=== PATIENT | male | born 1980 | race Caucasian/White ===

== ENCOUNTER 2020-09-17 18:51 | Emergency (ER) | payer OTHER ==
[~2020-09-17] VITALS: Ht 180.3 cm; Wt 86.3 kg
[2020-09-17 18:54] VITALS: BP 140/70
[2020-09-17] MEDS ORDERED: IV NORMAL SALINE 1,000ML 1,000 ML IV ONE (19:15)
--- NOTE | 2020-09-17 19:29 | PHYS DOC ---
Past History Past Medical History: Anxiety, Asthma, GERD, Migraines, Other Additional Past Medical Histor: PTSD, Hepatitis Additional Past Surgical Histo: chest tube Alcohol Use: Rarely General Adult EDM: Chief Complaint: ALTERED MENTAL STATUS HPI: HPI: 40-year-old male presents from the [facility] with reported altered mental status. The patient denies feeling unusual. He tells me that he does feel a bit anxious today, but he has a history of some baseline anxiety. He denies taking any medications, drugs, or alcohol. He has no specific complaints. He denies fever or chills. Review of Systems: Review of Systems: Constitutional: Denies fever or chills Eyes: Denies change in visual acuity HENT: Denies nasal congestion or sore throat Respiratory: Denies cough or shortness of breath Cardiovascular: Denies chest pain or edema GI: Denies abdominal pain, nausea, vomiting, bloody stools or diarrhea : Denies dysuria Musculoskeletal: Denies back pain or joint pain Integument: Denies rash Neurologic: Denies headache, focal weakness or sensory changes Endocrine: Denies polyuria or polydipsia Lymphatic: Denies swollen glands Psychiatric: Anxiety Current Medications: Current Meds: Current Medications Medications (Trade) Dose Ordered Sig/Regina Start Time Stop Time Status Last Admin Dose Admin Sodium Chloride 1,000 ml @ 1,000 mls/hr 1X ONCE 09/17/20 19:15 09/17/20 20:14 Allergies: Allergies: Allergies Coded Allergies Type Severity Reaction Last Updated Verified Sulfa (Sulfonamide Antibiotics) Allergy Unknown 09/17/20 Yes Physical Exam: PE: Constitutional: Well developed, well nourished, no acute distress, non-toxic appearance. [] HENT: Normocephalic, atraumatic, bilateral external ears normal, oropharynx moist, no oral exudates, nose normal. [] Eyes: PERRLA, EOMI, conjunctiva normal, no discharge. [] Neck: Normal range of motion, no tenderness, supple, no stridor. [] Cardiovascular: Heart rate regular rhythm, no murmur [] Lungs & Thorax: Bilateral breath sounds clear to auscultation [] Abdomen: Bowel sounds normal, soft, no tenderness, no masses, no pulsatile ma sses. [] Skin: Warm, dry, no erythema, no rash. Lots of tattoos. [] Back: No tenderness, no CVA tenderness. [] Extremities: No tenderness, no cyanosis, no clubbing, ROM intact, no edema. [] Neurologic: Alert and oriented X 3, normal motor function, normal sensory function, no focal deficits noted. [] Psychologic: Affect normal, judgement normal, mood normal. [] Current Patient Data: Vital Signs: Vital Signs Date Time Temp Pulse Resp B/P (MAP) Pulse Ox O2 Delivery O2 Flow Rate FiO2 09/17/20 18:54 98.4 93 18 140/70 (93) 95 Room Air EKG: EKG: [] Radiology/Procedures: Radiology/Procedures: [] Heart Score: C/O Chest Pain: N/A Risk Factors: Risk Factors: DM, Current or recent (<one month) smoker, HTN, HLP, family history of CAD, obesity. Risk Scores: Score 0 - 3: 2.5% MACE over next 6 weeks - Discharge Home Score 4 - 6: 20.3% MACE over next 6 weeks - Admit for Clinical Observation Score 7 - 10: 72.7% MACE over next 6 weeks - Early Invasive Strategies Course & Med Decision Making: Course & Med Decision Making Pertinent Labs and Imaging studies reviewed. (See chart for details) The patient's labs are unremarkable. His urinalysis is negative for infection. His urine drug screen is positive for amphetamines and marijuana. He is stable. He is lucid. He fully comprehends his surroundings and is functional within normal limits. I do not see any reason to admit the patient to the hospital. He is stable for discharge back to his facility at this time. [] Candi Disclaimer: Candi Disclaimer: This electronic medical record was generated, in whole or in part, using a voice recognition dictation system. Departure Departure: Impression: Primary Impression: Methamphetamine use Additional Impression: Marijuana use Disposition: HOME / SELF CARE / HOMELESS Condition: STABLE Patient Instructions: Marijuana Abuse-Brief, Methamphetamine Abuse, Complications MARIAH ROWLEY DO Sep 17, 2020 19:29
[2020-09-17 19:37] LABS: BASO # 0.1 x10^3/uL (0.0-0.2); BASO % 1 % (0-3); EOS # 0.6 x10^3/uL (0.0-0.7); EOS % 6 % (0-3); HEMATOCRIT 42.6 % (39.0-53.0); HEMOGLOBIN 14.3 g/dL (13.0-17.5); LYMPH % 32 % (24-48); MEAN CORPUSCULAR HEMOGLOBIN 31 pg (25-35); MEAN CORPUSCULAR HGB CONC 34 g/dL (31-37); MEAN CORPUSCULAR VOLUME 92 fL (79-100); MONO # 1.1 x10^3/uL (0.0-1.1); MONO % 11 % (0-9); NEUT # 4.8 x10^3uL (1.8-7.7); NEUT % 50 % (31-73); PLATELET COUNT 361 x10^3/uL (140-400); RED BLOOD COUNT 4.63 x10^6/uL (4.30-5.70); RED CELL DISTRIBUTION WIDTH 12.9 % (11.5-14.5); WHITE BLOOD COUNT 9.6 x10^3/uL (4.0-11.0)
[2020-09-17 19:39] LABS: CALCIUM 8.9 mg/dL (8.5-10.1); CREATININE 1.1 mg/dL (0.7-1.3); GFR 74.5; POTASSIUM 4.1 mmol/L (3.5-5.1)
[2020-09-17 19:44] LABS: BARBITURATES NEG (NEG); BENZODIAZEPINES NEG (NEG); CANNABINOIDS POS (NEG); COCAINE NEG (NEG); METHADONE NEG (NEG); OPIATES NEG (NEG); PHENCYCLIDINE NEG (NEG)
[2020-09-17 19:45] LABS: ALBUMIN 3.9 g/dL (3.4-5.0); ALBUMIN/GLOBULIN RATIO 1.1 (1.0-1.7); TOTAL BILIRUBIN 0.5 mg/dL (0.2-1.0); TOTAL PROTEIN 7.5 g/dL (6.4-8.2)
[2020-09-17 19:45] LABS: AMPHETAMINE/METHAMPHETAMINE POS (NEG)
[2020-09-17 19:50] LABS: BACTERIA,URINE 0 /HPF (0-FEW); BILIRUBIN,URINE NEG (NEG); CLARITY,URINE CLEAR; COLOR,URINE YELLOW; GLUCOSE,URINE NEG (NEG); NITRITE,URINE NEG (NEG); RBC,URINE 0 /HPF (0-2); UROBILINOGEN,URINE 0.2 mg/dL (0.2 mg/dL); WBC,URINE 0 /HPF (0-4)
== END 2020-09-17 20:32 | disposition home or self-care (01) ==
LOC: ER 18:51
DX: F15.90 Other stimulant use, unspecified, uncomplicated (principal); F12.90 Cannabis use, unspecified, uncomplicated; F41.9 Anxiety disorder, unspecified; J45.909 Unspecified asthma, uncomplicated; K21.9 Gastro-esophageal reflux disease without esophagitis; G43.909 Migraine, unspecified, not intractable, without status migrainosus; F43.10 Post-traumatic stress disorder, unspecified; Z88.2 Allergy status to sulfonamides
CPT/HCPCS: 36415; 80053; 80307; 81001; 85025; 96360; 99283; J7030

== ENCOUNTER 2021-01-26 15:09 | Emergency (ER) | payer OTHER ==
[~2021-01-26] VITALS: Ht 180.3 cm; Wt 86.3 kg
--- NOTE | 2021-01-26 15:31 | PHYS DOC ---
Past History Past Medical History: Anxiety, Asthma, GERD, Migraines, Other Additional Past Medical Histor: PTSD, Hepatitis (TELMA CAMPBELL DO) Past Surgical History: Other Additional Past Surgical Histo: chest tube (TELMA CAMPBELL DO) Alcohol Use: Rarely Drug Use: Other (K2) (TELMA CAMPBELL DO) Adult General Chief Complaint Chief Complaint: ALTERED MENTAL STATUS HPI HPI Patient is a 40-year-old male who currently lives at the [facility] presents via EMS for seizure. Patient reportedly took an unknown amount of K2 and had a witnessed seizure. Bystanders report patient fell and hit head with continued seizure-like activities that was described as generalized tonic- clonic. EMS was called and on arrival approximately 10 minutes later, patient continued to have residual seizure-like activity. After assessment and in route transport to ER, patient seizure-like activity resolved without any intervention. Patient postictal on arrival to ER answering questions by nodding head and with single word answers only. Denies being in any pain (TELMA CAMPBELL DO) Review of Systems Review of Systems Fourteen body systems of review of systems have been reviewed. See HPI for pertinent positives and negative responses, other campuzano all other systems are negative, non-pertinent or non-contributory (TELMA CAMPBELL DO) Allergies Allergies Allergies Coded Allergies Type Severity Reaction Last Updated Verified Sulfa (Sulfonamide Antibiotics) Allergy Unknown 09/17/20 Yes (TELMA CAMPBELL DO) Physical Exam Physical Exam Constitutional: Well developed, well nourished, no acute distress, non-toxic appearance. HENT: Normocephalic, atraumatic, bilateral external ears normal, oropharynx moist, no oral exudates, nose normal. Eyes: PERRLA, EOMI, conjunctiva normal, no discharge. Neck: Normal range of motion, no tenderness, supple, no stridor. Cardiovascular: Heart rate regular, sinus rhythm, no murmurs rubs or gallops Lungs & Thorax: Bilateral breath sounds clear to auscultation Abdomen: Bowel sounds normal, soft, no tenderness, no masses, no pulsatile masses. Nonsurgical abdomen, no peritoneal signs Skin: Warm, dry, no erythema, no rash. Back: No tenderness, no CVA tenderness. Extremities: No tenderness, no cyanosis, no clubbing, ROM intact, no edema. Neurologic: Alert and oriented X 3, grossly normal motor & sensory function, no focal deficits noted. Psychologic: Affect normal, judgement normal, mood normal. (TELMA CAMPBELL DO) Current Patient Data Vital Signs Vital Signs Date Time Temp Pulse Resp B/P (MAP) Pulse Ox O2 Delivery O2 Flow Rate FiO2 01/26/21 15:18 97.9 106 14 123/85 96 Nasal Cannula 2.0 (TELMA CAMPBELL DO) EKG EKG EKG ordered and interpreted by myself at 1520 hrs. as sinus rhythm at 104 bpm, unremarkable intervals, no axis deviation, suspect T wave inversion noted in lead aVF otherwise no acute ischemic findings, no STEMI (TELMA CAMPBELL DO) Radiology/Procedures Radiology/Procedures CT HEAD AND C-SPINE WO Date: 01/26/2021 3:28 PM Clinical Indication: SEIZURE WITH WITNESSED FALL TO HEAD, pain Comparison: None. Technique: 5 mm axial tomographic images were obtained of the head without contrast. These were viewed on brain and bone windows. CT imaging of the cervical spine was performed without contrast. Coronal and sagittal reformatted images were performed. One or more of the following dose reduction techniques were utilized: Automated exposure control (AEC), Adjustment of mA and/or kV according to patient size, Use of iterative reconstruction technique such as ASiR, CT scan done according to ALARA and image gently/image wisely HEAD FINDINGS: The brain parenchyma is normal in attenuation. No intra- or extra-axial mass or fluid collection. No acute hemorrhage. The ventricles are normal in size, shape, and morphology. The bradford-white matter junction is normal. The basilar cisterns are patent. The visualized paranasal sinuses are normal. The visualized portions of the orbits and globes are normal. The mastoid air cells are clear. No aggressive osseous lesion or fracture. CERVICAL SPINE FINDINGS: The cervical spine is normally aligned. No acute fracture. No aggressive lytic or blastic osseous lesion. Mild multilevel degenerative disc height loss. No high-grade spinal canal stenosis or neural foraminal narrowing. The thyroid gland is normal. No cervical lymphadenopathy. The visualized aerodigestive tract is unremarkable. The visualized lung apices are clear. IMPRESSION: 1. No acute intracranial process. 2. No acute osseous abnormality of the cervical spine. Electronically signed by: Gaston Troy MD (01/26/2021 4:04 PM) [facility] (TELMA CAMPBELL DO) Impressions: CT HEAD AND C-SPINE WO Date: 01/26/2021 3:28 PM Clinical Indication: SEIZURE WITH WITNESSED FALL TO HEAD, pain Comparison: None. Technique: 5 mm axial tomographic images were obtained of the head without contrast. These were viewed on brain and bone windows. CT imaging of the cervical spine was performed without contrast. Coronal and sagittal reformatted images were performed. One or more of the following dose reduction techniques were utilized: Automated exposure control (AEC), Adjustment of mA and/or kV according to patient size, Use of iterative reconstruction technique such as ASiR, CT scan done according to ALARA and image gently/image wisely HEAD FINDINGS: The brain parenchyma is normal in attenuation. No intra- or extra-axial mass or fluid collection. No acute hemorrhage. The ventricles are normal in size, shape, and morphology. The bradford-white matter junction is normal. The basilar cisterns are patent. The visualized paranasal sinuses are normal. The visualized portions of the orbits and globes are normal. The mastoid air cells are clear. No aggressive osseous lesion or fracture. CERVICAL SPINE FINDINGS: The cervical spine is normally aligned. No acute fracture. No aggressive lytic or blastic osseous lesion. Mild multilevel degenerative disc height loss. No high-grade spinal canal stenosis or neural foraminal narrowing. The thyroid gland is normal. No cervical lymphadenopathy. The visualized aerodigestive tract is unremarkable. The visualized lung apices are clear. IMPRESSION: 1. No acute intracranial process. 2. No acute osseous abnormality of the cervical spine. Electronically signed by: Gaston Troy MD (01/26/2021 4:04 PM) [facility] DICTATED AND SIGNED BY: GASTON TROY MD DATE: 01/26/21 1559 CC: TELMA CAMPBELL DO; PCP,NO ~MTH0 0 (MARIAH ROWLEY DO) Heart Score Risk Factors: Risk Factors: DM, Current or recent (<one month) smoker, HTN, HLP, family history of CAD, obesity. Risk Scores: Risk Factors: DM, Current or recent (<one month) smoker, HTN, HLP, family history of CAD, obesity. (TELMA CAMPBELL DO) C/O Chest Pain: N/A (MARIAH ROWLEY DO) Course & Med Decision Making Course & Med Decision Making Tachycardic and requiring supplemental oxygen on arrival. History obtained poor due to patient's postictal and/or intoxicated state. Seizure-like activity observed and aborted with IV Ativan Patient pending comprehensive ER work-up at time of my shift's end. Patient care transferred to oncoming physician. Please refer to their documentation regarding future care of patient (TELMA CAMPBELL DO) Course & Med Decision Making The patient's labs are unremarkable. His urine drug screen is pending but I do not think this is necessary for determination of disposition. The patient is able to ambulate. He is alert and aware of his surroundings. He wants to leave. He is stable for discharge at this time. (MARIAH ROWLEY DO) Dragon Disclaimer Dragon Disclaimer This electronic medical record was generated, in whole or in part, using a voice recognition dictation system. (TELMA CAMPBELL DO) Departure Departure: Impression: Primary Impression: Altered mental status associated with intoxication Disposition: 01 HOME / SELF CARE / HOMELESS Condition: STABLE Referrals: PCP,NO (PCP) Patient Instructions: Drug Abuse, FAQs TELMA CAMPBELL DO Jan 26, 2021 15:31 MARIAH ROWLEY DO Jan 26, 2021 19:29
[2021-01-26 15:50] LABS: BASO # 0.1 x10^3/uL (0.0-0.2); BASO % 1 % (0-3); EOS # 0.5 x10^3/uL (0.0-0.7); EOS % 5 % (0-3); HEMATOCRIT 40.5 % (39.0-53.0); HEMOGLOBIN 13.4 g/dL (13.0-17.5); LYMPH # 2.9 x10^3/uL (1.0-4.8); LYMPH % 31 % (24-48); MEAN CORPUSCULAR HEMOGLOBIN 31 pg (25-35); MEAN CORPUSCULAR HGB CONC 33 g/dL (31-37); MEAN CORPUSCULAR VOLUME 94 fL (79-100); MONO # 0.8 x10^3/uL (0.0-1.1); MONO % 9 % (0-9); NEUT # 5.2 x10^3uL (1.8-7.7); NEUT % 55 % (31-73); PLATELET COUNT 329 x10^3/uL (140-400); RED CELL DISTRIBUTION WIDTH 13.1 % (11.5-14.5); WHITE BLOOD COUNT 9.4 x10^3/uL (4.0-11.0)
[2021-01-26 16:04] LABS: CALCIUM 8.1 mg/dL (8.5-10.1); CREATININE 1.1 mg/dL (0.7-1.3); GFR 74.5; POTASSIUM 4.5 mmol/L (3.5-5.1)
--- NOTE | 2021-01-26 16:07 | RAD ---
CT HEAD AND C-SPINE WO Date: 01/26/2021 3:28 PM Clinical Indication: SEIZURE WITH WITNESSED FALL TO HEAD, pain Comparison: None. Technique: 5 mm axial tomographic images were obtained of the head without contrast. These were view ed on brain and bone windows. CT imaging of the cervical spine was performed without contrast. Coron al and sagittal reformatted images were performed. One or more of the following dose reduction techni ques were utilized: Automated exposure control (AEC), Adjustment of mA and/or kV according to patient size, Use of iterative reconstruction technique such as ASiR, CT scan done according to ALARA and im age gently/image wisely HEAD FINDINGS: The brain parenchyma is normal in attenuation. No intra- or extra-axial mass or fluid collection. No acute hemorrhage. The ventricles are normal in size, shape, and morphology. The bradford-white matter klever ction is normal. The basilar cisterns are patent. The visualized paranasal sinuses are normal. The visualized portions of the orbits and globes are no rmal. The mastoid air cells are clear. No aggressive osseous lesion or fracture. CERVICAL SPINE FINDINGS: The cervical spine is normally aligned. No acute fracture. No aggressive lytic or blastic osseous les ion. Mild multilevel degenerative disc height loss. No high-grade spinal canal stenosis or neural foramina l narrowing. The thyroid gland is normal. No cervical lymphadenopathy. The visualized aerodigestive tract is unrem arkable. The visualized lung apices are clear. IMPRESSION: 1. No acute intracranial process. 2. No acute osseous abnormality of the cervical spine. Electronically signed by: Yogi Troy MD (01/26/2021 4:04 PM) [facility]
[2021-01-26 16:11] LABS: ALBUMIN/GLOBULIN RATIO 1.2 (1.0-1.7); TOTAL BILIRUBIN 0.3 mg/dL (0.2-1.0); TOTAL PROTEIN 7.3 g/dL (6.4-8.2)
--- NOTE | 2021-01-26 16:37 | EKG ---
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
[2021-01-26] MEDS ORDERED: IV NORMAL SALINE 1,000ML 1,000 ML IV ONE (16:45)
[2021-01-26 19:30] VITALS: BP 128/84
== END 2021-01-26 19:35 | disposition home or self-care (01) ==
LOC: ER 15:09
DX: R41.82 Altered mental status, unspecified (principal); R56.9 Unspecified convulsions; K21.9 Gastro-esophageal reflux disease without esophagitis; J45.909 Unspecified asthma, uncomplicated; Z88.2 Allergy status to sulfonamides
CPT/HCPCS: 36415; 70450; 72125; 80053; 83605; 84484; 85025; 93005; 96361; 96374; 99285; G0480; J2060; J7030

== ENCOUNTER 2021-05-19 18:42 | Emergency (ER) | payer OTHER ==
[~2021-05-19] VITALS: Ht 188 cm; Wt 79.0 kg
--- NOTE | 2021-05-19 18:51 | PHYS DOC ---
Past History Past Medical History: Anxiety, Asthma, GERD, HI, Migraines, Seizure, Other Additional Past Medical Histor: PTSD, Hepatitis Past Surgical History: Other Additional Past Surgical Histo: chest tube Smoking: Cigarettes Alcohol Use: None Drug Use: Other General Adult HPI: HPI: ".. I guess I had a seizure or something... there is a lot of K2 there... and any time someone fall out they think it is K-2.. If they think this is K-2 I will get another 41 days before I can go home to [facility]... ".." I just completed a 11 yrs. stay for [employer].. 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 .. " Patient is a 41 year old male who presents with mental status change. Pt. is from the [facility]. Pt. suspect of ingestion of substance abuse. Patient does have a history of previous seizure-like activity. Patient has history of anxiety, asthma, GERD, migraines, PTSD, hepatitis, chest tube placement for pneumothorax. Patient past medical history of hepatitis, seizure- like activity, polysubstance abuse, spontaneous pneumothorax on the left which required chest tube placement. Patient denies any recent trauma. No history of fever or chills. Has completed COVID vaccination x2. Has not completed flu vaccination as yet. Review of Systems: Review of Systems: Constitutional: Denies fever or chills Eyes: Denies change in visual acuity HENT: Denies nasal congestion or sore throat Respiratory: Denies cough or shortness of breath Cardiovascular: Denies chest pain or edema GI: Denies abdominal pain, nausea, vomiting, bloody stools or diarrhea : Denies dysuria Musculoskeletal: Denies back pain or joint pain Integument: Denies rash Neurologic: Denies headache, focal weakness or sensory changes Endocrine: Denies polyuria or polydipsia Lymphatic: Denies swollen glands Psychiatric: Denies depression or anxiety Family History: Family History: Noncontributory to presentation Current Medications: Current Meds: See nursing for home meds Allergies: Allergies: Allergies Coded Allergies Type Severity Reaction Last Updated Verified Sulfa (Sulfonamide Antibiotics) Allergy Unknown 09/17/20 Yes Physical Exam: PE: Constitutional: no acute distress, non-toxic appearance. [] HENT: Normocephalic, atraumatic, bilateral external ears normal, oropharynx moist, no oral exudates, nose normal. Bite bryan on side of tongue Eyes: PERRLA, EOMI, conjunctiva normal, no discharge. [] Tattoos on eye lids- Game / Over, Life/ Neck: Normal range of motion, no tenderness, supple, no stridor. [] Cardiovascular: Tachycardia heart rate regular rhythm, no murmur [] Lungs & Thorax: Bilateral breath sounds equal apex with scattered wheezes auscultation [] chest tube scar left chest wall. Abdomen: Bowel sounds normal, soft, no tenderness, no masses, no pulsatile masses. [] Skin: Warm, dry, no erythema, no rash. Tattoos over entire body including scalp, eyelids, lips Back: No tenderness, no CVA tenderness. [] Extremities: No tenderness, no cyanosis, no clubbing, ROM intact, no edema. [] Neurologic: Alert and oriented X 3, normal motor function, normal sensory function, no focal deficits noted. [] Psychologic: Affect anxious, judgement normal, mood normal. [] EKG: EKG: My interpretation EKG shows a sinus rhythm at 91 bpm. No findings of acute STEMI or contralateral changes. [] Time of EKG is 1919 minutes My interpretation 2nd EKG shows a sinus rhythm at 98 bpm. Slightly prolonged QTc interval at 474 ms and QT at 370 ms. Overall morphology essentially unchanged from prior EKG on file. Time of this EKG is 2058 hrs. Radiology/Procedures: Radiology/Procedures: [][address] [address] IMAGING REPORT Signed PATIENT: MARIPOSA HUMPHREY BACCOUNT: [id number] : 1980 LOCATION: ER AGE: 41 SEX: M EXAM STATUS: REG ER ORD. PHYSICIAN: SILVERIO PATEL MD REASON: Syncope, MS change PROCEDURE: PORTABLE CHEST 1V Single view chest dated 05/19/2021 7:15 PM: COMPARISON: None Clinical Indication: Syncope. Mental status change. Findings: Single upright portable exam of the chest was performed. Heart size and mediastinal contours are within normal limits. Lungs are clear. No consolidation or pleural effusion. No pneumothorax. IMPRESSION: No acute radiographic abnormality. Electronically signed by: Spike Gant MD (05/19/2021 7:15 PM) [facility] DICTATED AND SIGNED BY: SPIKE GANT MD DATE: 05/19/211914 CC: SILVERIO PATEL MD; PCP,NO ~MTH0 [address] [place] [address] IMAGING REPORT Signed PATIENT: MARIPOSA HUMPHREY BACCOUNT: [id number] : 1980 LOCATION: ER AGE: 41 SEX: M EXAM STATUS: REG ER ORD. PHYSICIAN: SILVERIO PATEL MD REASON: Altered mental status, confusion, headache, neck pain PROCEDURE: CT HEAD AND CERVICAL SPINE WO CT HEAD AND C-SPINE WO dated 05/19/2021 7:10 PM. Comparison: None. Clinical Indication: Reason: Altered mental status, confusion, headache, neck pain / Spl. Instructions: / History: , HEAD AND NECK PAIN Technical factors: Contiguous 5 mm axial images of the head were obtained from the skullbase to the vertex. No contrast was administered. In addition, 3 mm axial images of the cervical spine were acquired with thin cut coronal and sagittal reconstructions. One or more of the following individualized dose reduction techniques were uti lized for this examination: 1. Automated exposure control 2. Adjustment of the mA and/or kV according to patient size 3. Use of iterative reconstruction technique Findings head: Ventricles and sulci are within normal limits for age. No evidence of ventricular shift or mass effect. Brain parenchyma is of normal attenuation. There is no evidence of hemorrhage or extra-axial collection. Minimal mucosal thickening of the ethmoid air cells. The paranasal sinuses and mastoid air cells are otherwise clear. No apparent calvarial abnormality. IMPRESSION HEAD: 1. No evidence of acute intracranial abnormality. Findings cervical spine: Images were acquired from the skull base to mid T4. There is straightening of the normal cervical lordosis, otherwise sagittal alignment is anatomic. Vertebral body heights are maintained. No prevertebral soft tissue swelling. Posterior elements are intact. No fractures are identified. Mild endplate hypertrophic changes throughout. Multilevel disc space narrowing and uncovertebral spurring. Mild multilevel facet arthropathy. There is resultant mild central stenosis at C5-C6 with multilevel mild foraminal narrowing. Visualized soft tissue structures are unremarkable. There are borderline enlarged bilateral cervical chain lymph nodes, nonspecific. IMPRESSION CERVICAL SPINE: 1. No evidence of fracture or malalignment. 2. Mild multilevel spondylosis. 3. Borderline enlarged bilateral cervical chain lymph nodes, nonspecific. Electronically signed by: Spike Gant MD (05/19/2021 7:46 PM) [facility] DICTATED AND SIGNED BY: SPIKE GANT MD DATE: 05/19/211941 CC: SILVERIO PATEL MD; PCP,NO ~MTH0 0 Heart Score: C/O Chest Pain: N/A HEART Score for Chest Pain: HEART Score for Chest Pain Response (Comments) Value History Slighlty/Non-Suspicious 0 ECG Normal 0 Age < 45 0 Risk Factors 1 or 2 Risk Factors 1 Troponin < Normal Limit 0 Total 1 Risk Factors: Risk Factors: DM, Current or recent (<one month) smoker, HTN, HLP, family history of CAD, obesity. Risk Scores: Score 0 - 3: 2.5% MACE over next 6 weeks - Discharge Home Score 4 - 6: 20.3% MACE over next 6 weeks - Admit for Clinical Observation Score 7 - 10: 72.7% MACE over next 6 weeks - Early Invasive Strategies Course & Med Decision Making: Course & Med Decision Making Pertinent Labs and Imaging studies reviewed. (See chart for details) Pt. currently demanding discharge. Does not wish to complete his work up. Begged pt to reconsider his decision. Refused to complete 2nd Trop. Risks of his decision to complete eval . discussed at length. Advised to return if he elected to complete his evaluation. Impression: 1. Mental status change 2. Hx. polysubstance abuse 3. Tobacco Use 4. Drug screen + for Meth. tonight 5. Elevated BNP 2,611 6. Elevtged CK 581 [] Dragon Disclaimer: Dragon Disclaimer: This electronic medical record was generated, in whole or in part, using a voice recognition dictation system. Departure Departure: Referrals: PCP,KIMBERLYN (PCP) Candi Disclaimer This chart was dictated in whole or in part using Voice Recognition software in a busy, high-work load, and often noisy Emergency Department environment. It may contain unintended and wholly unrecognized errors or omissions. SILVERIO PATEL MD May 19, 2021 18:51
[2021-05-19 19:00] VITALS: BP 104/73
[2021-05-19] MEDS ORDERED: IV RINGERS SOLUTION,LACTATED 1,000 ML IV SCH (19:00)
[2021-05-19] MEDS ORDERED: methylPREDNISolone SOD SUCC PF 40 MG/ML VIAL. IV ONE (19:00)
--- NOTE | 2021-05-19 19:17 | RAD ---
Single view chest dated 05/19/2021 7:15 PM: COMPARISON: None Clinical Indication: Syncope. Mental status change. Findings: Single upright portable exam of the chest was performed. Heart size and mediastinal contours are with in normal limits. Lungs are clear. No consolidation or pleural effusion. No pneumothorax. IMPRESSION: No acute radiographic abnormality. Electronically signed by: Spike Gant MD (05/19/2021 7:15 PM) [facility]
--- NOTE | 2021-05-19 19:30 | EKG ---
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
--- NOTE | 2021-05-19 19:48 | RAD ---
CT HEAD AND C-SPINE WO dated 05/19/2021 7:10 PM. Comparison: None. Clinical Indication: Reason: Altered mental status, confusion, headache, neck pain / Spl. Instruction s: / History: , HEAD AND NECK PAIN Technical factors: Contiguous 5 mm axial images of the head were obtained from the skullbase to the v ertex. No contrast was administered. In addition, 3 mm axial images of the cervical spine were acquir ed with thin cut coronal and sagittal reconstructions. One or more of the following individualized dose reduction techniques were utilized for this examinat ion: 1. Automated exposure control 2. Adjustment of the mA and/or kV according to patient size 3. Use of iterative reconstruction technique Findings head: Ventricles and sulci are within normal limits for age. No evidence of ventricular shift or mass effec t. Brain parenchyma is of normal attenuation. There is no evidence of hemorrhage or extra-axial colle ction. Minimal mucosal thickening of the ethmoid air cells. The paranasal sinuses and mastoid air cells are otherwise clear. No apparent calvarial abnormality. IMPRESSION HEAD: 1. No evidence of acute intracranial abnormality. Findings cervical spine: Images were acquired from the skull base to mid T4. There is straightening of the normal cervical natalia dosis, otherwise sagittal alignment is anatomic. Vertebral body heights are maintained. No prevertebr al soft tissue swelling. Posterior elements are intact. No fractures are identified. Mild endplate hypertrophic changes throughout. Multilevel disc space narrowing and uncovertebral spur ring. Mild multilevel facet arthropathy. There is resultant mild central stenosis at C5-C6 with multi level mild foraminal narrowing. Visualized soft tissue structures are unremarkable. There are borderline enlarged bilateral cervical chain lymph nodes, nonspecific. IMPRESSION CERVICAL SPINE: 1. No evidence of fracture or malalignment. 2. Mild multilevel spondylosis. 3. Borderline enlarged bilateral cervical chain lymph nodes, nonspecific. Electronically signed by: Spike Gant MD (05/19/2021 7:46 PM) [facility]
[2021-05-19 20:06] LABS: BASO % 0 % (0-3); EOS # 0.2 x10^3/uL (0.0-0.7); EOS % 2 % (0-3); HEMATOCRIT 42.7 % (39.0-53.0); HEMOGLOBIN 14.3 g/dL (13.0-17.5); LYMPH # 2.1 x10^3/uL (1.0-4.8); LYMPH % 20 % (24-48); MEAN CORPUSCULAR HEMOGLOBIN 31 pg (25-35); MEAN CORPUSCULAR HGB CONC 34 g/dL (31-37); MEAN CORPUSCULAR VOLUME 92 fL (79-100); MONO # 0.8 x10^3/uL (0.0-1.1); MONO % 8 % (0-9); NEUT # 7.2 x10^3uL (1.8-7.7); NEUT % 69 % (31-73); PLATELET COUNT 397 x10^3/uL (140-400); RED BLOOD COUNT 4.65 x10^6/uL (4.30-5.70); RED CELL DISTRIBUTION WIDTH 13.2 % (11.5-14.5); WHITE BLOOD COUNT 10.4 x10^3/uL (4.0-11.0)
[2021-05-19 20:20] LABS: CREATININE 0.9 mg/dL (0.7-1.3); GFR 93.5; POTASSIUM 4.3 mmol/L (3.5-5.1)
[2021-05-19 20:21] LABS: BARBITURATES NEG (NEG); BENZODIAZEPINES NEG (NEG); CANNABINOIDS NEG (NEG); COCAINE NEG (NEG); METHADONE NEG (NEG); OPIATES NEG (NEG); PHENCYCLIDINE NEG (NEG)
[2021-05-19 20:24] LABS: AMPHETAMINE/METHAMPHETAMINE POS (NEG)
[2021-05-19 20:27] LABS: BACTERIA,URINE 0 /HPF (0-FEW); BILIRUBIN,URINE NEG (NEG); CLARITY,URINE CLEAR; COLOR,URINE YELLOW; GLUCOSE,URINE NEG (NEG); NITRITE,URINE NEG (NEG); RBC,URINE 0 /HPF (0-2); SQUAMOUS EPITHELIAL CELL,UR OCC /LPF; WBC,URINE OCC /HPF (0-4)
[2021-05-19 20:28] LABS: SPERM,URINE PRESENT /HPF
[2021-05-19] MEDS ORDERED: LORazepam 1 MG TABLET ONE (20:28)
[2021-05-19] MEDS ORDERED: LORazepam 1 MG TABLET PO ONE (20:30)
[2021-05-19 20:33] LABS: ALBUMIN 4.1 g/dL (3.4-5.0); DIRECT BILIRUBIN 0.2 mg/dL (0.0-0.2); MAGNESIUM 1.9 mg/dL (1.8-2.4); TOTAL BILIRUBIN 0.8 mg/dL (0.2-1.0); TOTAL PROTEIN 7.3 g/dL (6.4-8.2)
[2021-05-19] MEDS ORDERED: FUROSEMIDE 40 MG/4 ML VIAL IVP ONE (20:45)
--- NOTE | 2021-05-19 21:41 | EKG ---
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
[2021-05-23 10:10] LABS: HCV ULTRA QUANT PCR 127000 IU/mL (.)
== END 2021-05-19 21:20 | disposition home or self-care (01) ==
LOC: ER 18:42
DX: R41.82 Altered mental status, unspecified (principal); F15.10 Other stimulant abuse, uncomplicated; R79.89 Other specified abnormal findings of blood chemistry; R74.8 Abnormal levels of other serum enzymes; F41.9 Anxiety disorder, unspecified; J45.909 Unspecified asthma, uncomplicated; K21.9 Gastro-esophageal reflux disease without esophagitis; I25.2 Old myocardial infarction; G43.909 Migraine, unspecified, not intractable, without status migrainosus; F43.10 Post-traumatic stress disorder, unspecified; F17.210 Nicotine dependence, cigarettes, uncomplicated; Z88.2 Allergy status to sulfonamides
CPT/HCPCS: 36415; 70450; 71045; 72125; 80048; 80076; 80307; 81001; 82550; 83690; 83735; 83880; 84443; 84484; 85025; 85379; 85610; 85730; 86705; 86709; 86803; 87340; 87522; 93005; 99285; G0480